=== PATIENT | male | born 1965 | race Caucasian/White ===

== ENCOUNTER → 2017-10-29 | Outpatient (CLI) | payer OTHER | END | disposition home or self-care (01) | LOC: US 16:26 | DX: E04.2 Nontoxic multinodular goiter (principal) ==

== ENCOUNTER 2019-06-24 21:48 | Emergency (ER) | payer OTHER ==
[~2019-06-24] VITALS: Wt 145.1 kg
[2019-06-24] MEDS ORDERED: IBU800 MG PO (23:00)
== END 2019-06-24 23:40 | disposition home or self-care (01) ==
LOC: ED 21:48
DX: S89.92XA Unspecified injury of left lower leg, initial encounter (principal); W01.0XXA Fall on same level from slipping, tripping and stumbling without subsequent striking against object, initial encounter; Y93.89 Activity, other specified; Y92.89 Other specified places as the place of occurrence of the external cause; Y99.8 Other external cause status

== ENCOUNTER → 2019-07-07 | Outpatient (CLI) | payer OTHER ==
[~2019-07-07] MED LIST: IBU800 MG PO
== END | disposition home or self-care (01) ==
LOC: CT 15:26
DX: S82.302A Unspecified fracture of lower end of left tibia, initial encounter for closed fracture (principal); M71.22 Synovial cyst of popliteal space [Baker], left knee; M25.762 Osteophyte, left knee; M89.362 Hypertrophy of bone, left tibia; M25.462 Effusion, left knee; Z91.81 History of falling; X58.XXXA Exposure to other specified factors, initial encounter; Y93.89 Activity, other specified; Y92.89 Other specified places as the place of occurrence of the external cause; Y99.8 Other external cause status

== ENCOUNTER 2020-10-07 14:13 | Emergency (ER) | payer OTHER ==
[~2020-10-07] VITALS: Ht 182.8 cm; Wt 154.2 kg
[2020-10-07] MEDS ORDERED: METHOCARBAMOL500 M1 PO (14:36)
[2020-10-07] MEDS ORDERED: MEDROL DOSEPAK4 MG PO (14:36)
== END 2020-10-07 15:50 | disposition home or self-care (01) ==
LOC: ED 14:13
DX: S39.012A Strain of muscle, fascia and tendon of lower back, initial encounter (principal); X50.1XXA Overexertion from prolonged static or awkward postures, initial encounter; Y93.89 Activity, other specified; Y92.89 Other specified places as the place of occurrence of the external cause; Y99.8 Other external cause status

== ENCOUNTER 2024-12-12 12:10 | Emergency (ER) | payer OTHER ==
[~2024-12-12] VITALS: Ht 182.8 cm; Wt 149.7 kg
[~2024-12-12 12:10] MED LIST changes: +MEDROL DOSEPAK4 MG PO; +METHOCARBAMOL500 M1 PO
[2024-12-12] MEDS ORDERED: methylPREDNISolone sod succ 125 MG VIAL IV ONE (13:55)
[2024-12-12] MEDS ORDERED: Albuterol Sulf/Ipratropium 3 ML VIAL NEB ONE (13:55)
[2024-12-12 14:17] LABS: BASO % 0.3 % (0.0-1.0); EOS % 0.2 % (1.0-4.0); HEMATOCRIT 46.3 % (42.0-52.0); MEAN CELL VOLUME 90.8 fl (80.0-94.0); MEAN CORPUSCULAR HGB 30.2 pg (27.0-31.0); MEAN CORPUSCULAR HGB CONC 33.3 g/dl (33.0-37.0); MEAN PLATELET VOLUME 9.7 fl (9.6-12.3); MONO # 0.5 10*3/uL (0.1-1.0); MONO % 7.8 % (3.0-9.0); NEUT # 4.6 10*3/uL (2.3-7.9); NEUT % 69.3 % (47.0-73.0); PLATELET COUNT AUTOMATED 210 10*3/uL (130-400); RED CELL DISTRI WIDTH 13.3 % (0-14.5); WHITE BLOOD COUNT 6.6 10*3/uL (4.8-10.8)
[2024-12-12 14:33] LABS: ACT PARTIAL THROMBO TIME 26.5 SECONDS (20.0-32.1)
[2024-12-12 14:38] LABS: ALKALINE PHOSPHATASE 66 U/L (46-116); BUN 21 mg/dl (9-23); CHLORIDE 102 mmol/L (98-107); POTASSIUM 3.9 mmol/L (3.4-5.1); SGPT/ALT 40 U/L (5-49); TOTAL PROTEIN 6.6 gm/dL (6.0-8.0)
[2024-12-12] MEDS ORDERED: LEVOFLOXACIN750 M2 PO (17:10)
[2024-12-12] MEDS ORDERED: PREDNISONE50 MG PO (17:10)
== END 2024-12-12 17:24 | disposition home or self-care (01) ==
LOC: ED 12:10
PROVIDERS: Internal Medicine
DX: J44.1 Chronic obstructive pulmonary disease with (acute) exacerbation (principal); F17.210 Nicotine dependence, cigarettes, uncomplicated